=== PATIENT | female | born 1990 | race Caucasian/White ===

== ENCOUNTER 2019-05-24 16:20 | Emergency (ER) | payer MEDICAID ==
[2019-05-24 17:01] LABS: Absolute Neutrophil Ct (ANC) 8.51 (1.4-6.9); BASOPHIL % 0.6 % (0.0-0.4); Basophil (Absolute #) 0.09 (0-0.4); Eosinophil % 1.8 % (0.00-5.0); Eosinophil (Absolute #) 0.28 (0-0.5); Hematocrit 39.1 % (35-47); Hemoglobin 12.7 gm/dl (12.0-16.0); Lymphocyte (Absolute #) 4.39 (1.0-4.6); Lymphocytes % 28.7 % (24.0-44.0); Mean Cell Volume 92.4 fl (78-100); Mean Corpuscular Hgb Concent. 32.5 g/dl (32-36); Mean Platelet Volume 10.6 fl (6-9.5); Monocyte (Absolute #) 2.03 (0.0-1.3); Monocytes % 13.3 % (0.0-12.0); Neutrophil % 55.6 % (36.0-66.0); Platelet Count 345 K/mm3 (150-450); Red Blood Count 4.23 M/mm3 (4.1-5.4); Red Cell Distribution Width 14.2 % (11.5-14.0); White Blood Count 15.3 K/mm3 (4.0-10.5)
[2019-05-24 17:06] LABS: Appearance SLIGHTLY CLOUDY (CLEAR); Bacteria FEW /HPF (NEGATIVE); Bilirubin NEGATIVE (NEGATIVE); Blood LARGE Ery/ul (0-5); Epithelial Cells RARE /HPF (FEW); Glucose NEGATIVE (NEGATIVE); Ketones NEGATIVE (NEGATIVE); Leukocyte Esterase SMALL (NEGATIVE); Mucus SLIGHT /HPF (NEGATIVE); Nitrite NEGATIVE (NEGATIVE); Protein,Urine Dip 30 (Negative); Specific Gravity 1.023 (1.005-1.025); Urobilinogen 2 mg/dL (0-1); WBC 26-50 /HPF (0-5)
[2019-05-24 17:23] LABS: ALBUMIN 4.4 g/dL (3.5-5.0); ALKALINE PHOSPHATASE 59 U/L (38-126); ANION GAP 12.6 MEQ/L (5-15); BLOOD UREA NITROGEN 10 mg/dL (7-17); CHLORIDE 103 mmol/L (98-107); Calcium 9.6 mg/dL (8.4-10.2); Carbon Dioxide 29 mmol/L (22-30); Creatinine 1 0.83 mg/dL (0.52-1.04); Glucose 78 mg/dL (74-106); Potassium 3.7 mmol/L (3.5-5.1); SGOT/AST 42 U/L (14-36); SGPT/ALT 22 U/L (0-35); SODIUM 141 mmol/L (137-145); Total Protein 8.3 g/dL (6.3-8.2)
[2019-05-24 17:25] LABS: ACETAMINOPHEN < 10 ug/ml (10-30); ETHYL ALCOHOL < 10 mg/dL (0-10); SALICYLATE < 1.0 mg/dL (2-20)
[2019-05-24 17:54] LABS: Barbiturate,Urine NEGATIVE (NEGATIVE); Benzodiazepine,Urine NEGATIVE (NEGATIVE); Cocaine,Urine NEGATIVE (NEGATIVE); Methadone,Urine NEGATIVE (NEGATIVE); Opiate,Urine NEGATIVE (NEGATIVE); PCP,Urine NEGATIVE (NEGATIVE); THC,Urine NEGATIVE (NEGATIVE)
[2019-05-24 18:36] LABS: Amphetamine,Urine POSITIVE (NEGATIVE)
[2019-05-25 01:15] VITALS: BP 91/57; PULSE 65; O2SAT 100
--- NOTE | 2019-05-25 01:29 | ERPHSYRPT ---
- History of Present Illness Time Seen by Provider: 05/24/19 17:00 Source: patient Exam Limitations: clinical condition, intoxication Patient Subjective Stated Complaint: PT states "I do not know why I am here, I was bought here and did not want to come. I did bath salts a couple days ago, I shoot up meth, I did that a couple days ago, I have done nothing today. I do not want to hurt anyone, I do not want to hurt myself." Triage Nursing Assessment: Pt presented through the front doors with a friend, PT moving arms uncontrollable, unable to sit still. Pt speaks rapidly, has bruising and track mars on her arms. Pt denied suicidal or homicidal ideation. Physician History: patient is a 29-year-old white female who has been using meth and bath salts presents in an altered state. Police were here and found her not to be homicidal or suicidal.sshe has a history of heavy menses in the past. She was hospitalized at [facility] and for a while was able to be cleared for a while but has relapsed. Timing/Duration: today Severity of Symptoms-Max: moderate Severity of Symptoms-Current: moderate (aand) Allergies/Adverse Reactions: No Known Drug Allergies Allergy (Verified 05/24/19 16:38) Home Medications: Dextroamphetamine/Amphetamine [Adderall 20 mg Tablet] 20 mg PO DAILY 05/24/19 [ History] Hx Tetanus, Diphtheria Vaccination/Date Given: No Hx Influenza Vaccination/Date Given: No Hx Pneumococcal Vaccination/Date Given: No Immunizations Up to Date: Yes - Past Medical History Pertinent Past Medical History: Yes Other Medical History: hepatitis c - Past Surgical History Past Surgical History: Yes Other Surgical History: 4 sections,1 - Social History Smoking Status: Current every day smoker How long have you smoked: years Exposure to second hand smoke: Yes Drug Use: marijuana, bath salts, methamphetamines Patient Lives Alone: No - Female History Hx Last Menstrual Period: 05/18/2019 Hx Now: No - Review of Systems Constitutional: No Fever, No Chills Eyes: No Symptoms Ears, Nose, & Throat: No Symptoms Respiratory: No Cough, No Dyspnea Cardiac: No Chest Pain, No Edema, No Syncope Abdominal/Gastrointestinal: No Abdominal Pain, No Nausea, No Vomiting, No Diarrhea Genitourinary Symptoms: No Dysuria Musculoskeletal: No Back Pain, No Neck Pain Skin: No Rash Neurological: No Dizziness, No Focal Weakness, No Sensory Changes Psychological: Drug Abuse Endocrine: No Symptoms All Other Systems: Reviewed and Negative - Nursing Vital Signs Nursing Vital Signs: Initial Vital Signs Temperature 98.4 F 05/24/19 16:29 Pulse Rate 123 H 05/24/19 16:29 Respiratory Rate 20 05/24/19 16:29 Blood Pressure 110/87 05/24/19 16:29 O2 Sat by Pulse Oximetry 98 05/24/19 16:29 Pain Scale Pain Intensity 0 - Physical Exam General Appearance: no apparent distress, moderate distress (aand) Eyes, Ears, Nose, Throat Exam: normal ENT inspection, moist mucous membranes Neck Exam: normal inspection, non-tender, supple Respiratory Exam: normal breath sounds, lungs clear, No respiratory distress Cardiovascular Exam: regular rate/rhythm, No edema Gastrointestinal/Abdominal Exam: soft, No tenderness, No distention Extremities Exam: normal inspection, normal range of motion, No evidence of injury, No edema Current Suicidality: denies suicide plan Neurological Exam: alert, automatic outsole cutter II-XII nml as tested, oriented x 3 Appearance: disheveled Behavior/Eye Contact/Speech: avoids eye contact, increased rate of speech, compulsive, agitated (patient is twerking) Thoughts/Hallucinations: incoherent, obsessive Skin Exam: normal color, warm, dry, No rash SpO2: 100 - Course Nursing assessment & vital signs reviewed: Yes Ordered Tests: Active Orders 24 hr Category Date Time Status ACETAMINOPHEN Stat Lab 05/24/19 16:57 Completed CBC W DIFF Stat Lab 05/24/19 16:57 Completed CMP Stat Lab 05/24/19 16:57 Completed CULTURE,URINE Stat Lab 05/24/19 16:57 Received ETHYL ALCOHOL Stat Lab 05/24/19 16:57 Completed HCG,QUALITATIVE URINE Stat Lab 05/24/19 16:57 Completed SALICYLATE Stat Lab 05/24/19 16:57 Completed UA W/RFX UR CULTURE Stat Lab 05/24/19 16:57 Completed Urine Triage Profile Stat Lab 05/24/19 17:37 Completed Lab/Rad Data: Laboratory Result Diagrams 05/24/19 16:57 05/24/19 16:57 Laboratory Results 05/24/19 05/24/19 05/24/19 Range/Units 17:37 16:57 16:57 WBC (4.0-10.5) K/mm3 RBC (4.1-5.4) M/mm3 Hgb (12.0-16.0) gm/dl Hct (35-47) % MCV (78-100) fl MCH (26-32) pg MCHC (32-36) g/dl RDW (11.5-14.0) % Plt Count (150-450) K/mm3 MPV (6-9.5) fl Gran % (36.0-66.0) % Eos # (Auto) (0-0.5) Absolute Lymphs (auto) (1.0-4.6) Absolute Monos (auto) (0.0-1.3) Lymphocytes % (24.0-44.0) % Monocytes % (0.0-12.0) % Eosinophils % (0.00-5.0) % Basophils % (0.0-0.4) % Absolute Granulocytes (1.4-6.9) Basophils # (0-0.4) Sodium (137-145) mmol/L Potassium (3.5-5.1) mmol/L Chloride (98-107) mmol/L Carbon Dioxide (22-30) mmol/L Anion Gap (5-15) MEQ/L BUN (7-17) mg/dL Creatinine (0.52-1.04) mg/dL Estimated GFR ML/MIN Glucose (74-106) mg/dL Calcium (8.4-10.2) mg/dL Total Bilirubin (0.2-1.3) mg/dL AST (14-36) U/L ALT (0-35) U/L Alkaline Phosphatase (38-126) U/L Serum Total Protein (6.3-8.2) g/dL Albumin (3.5-5.0) g/dL Urine Color BRANDON (YELLOW) Urine Appearance SLIGHTLY CLOUDY (CLEAR) Urine pH 5.0 (5-6) Ur Specific [place] 1.023 (1.005-1.025) Urine Protein 30 (Negative) Urine Ketones NEGATIVE (NEGATIVE) Urine Blood LARGE (0-5) Cirilo/ul Urine Nitrite NEGATIVE (NEGATIVE) Urine Bilirubin NEGATIVE (NEGATIVE) Urine Urobilinogen 2 (0-1) mg/dL Ur Leukocyte Esterase SMALL (NEGATIVE) Urine WBC (Auto) 26-50 (0-5) /HPF Urine RBC (Auto) 16-25 (0-2) /HPF U Hyaline Cast (Auto) 6-10 (0-2) /LPF U Epithel Cells (Auto) RARE (FEW) /HPF Urine Bacteria (Auto) FEW (NEGATIVE) /HPF Urine Mucus (Auto) SLIGHT (NEGATIVE) /HPF Urine Culture Reflexed YES (NO) Urine Glucose NEGATIVE (NEGATIVE) mg/dL Urine HCG, Qual NEGATIVE (Negative) Salicylates (2-20) mg/dL Urine Opiates Level NEGATIVE (NEGATIVE) Ur Methadone NEGATIVE (NEGATIVE) Acetaminophen (10-30) ug/ml Urine Barbiturates NEGATIVE (NEGATIVE) Ur Phencyclidine (PCP) NEGATIVE (NEGATIVE) Urine Amphetamine POSITIVE (NEGATIVE) U Benzodiazepine Level NEGATIVE (NEGATIVE) Urine Cocaine NEGATIVE (NEGATIVE) Urine Marijuana (THC) NEGATIVE (NEGATIVE) Ethyl Alcohol (0-10) mg/dL 05/24/19 05/24/19 Range/Units 16:57 16:57 WBC 15.3 H (4.0-10.5) K/mm3 RBC 4.23 (4.1-5.4) M/mm3 Hgb 12.7 (12.0-16.0) gm/dl Hct 39.1 (35-47) % MCV 92.4 (78-100) fl MCH 30.0 (26-32) pg MCHC 32.5 (32-36) g/dl RDW 14.2 H (11.5-14.0) % Plt Count 345 (150-450) K/mm3 MPV 10.6 H (6-9.5) fl Gran % 55.6 (36.0-66.0) % Eos # (Auto) 0.28 (0-0.5) Absolute Lymphs (auto) 4.39 (1.0-4.6) Absolute Monos (auto) 2.03 H (0.0-1.3) Lymphocytes % 28.7 (24.0-44.0) % Monocytes % 13.3 H (0.0-12.0) % Eosinophils % 1.8 (0.00-5.0) % Basophils % 0.6 (0.0-0.4) % Absolute Granulocytes 8.51 H (1.4-6.9) Basophils # 0.09 (0-0.4) Sodium 141 (137-145) mmol/L Potassium 3.7 (3.5-5.1) mmol/L Chloride 103 (98-107) mmol/L Carbon Dioxide 29 (22-30) mmol/L Anion Gap 12.6 (5-15) MEQ/L BUN 10 (7-17) mg/dL Creatinine 0.83 (0.52-1.04) mg/dL Estimated GFR > 60.0 ML/MIN Glucose 78 (74-106) mg/dL Calcium 9.6 (8.4-10.2) mg/dL Total Bilirubin 1.30 (0.2-1.3) mg/dL AST 42 H (14-36) U/L ALT 22 (0-35) U/L Alkaline Phosphatase 59 (38-126) U/L Serum Total Protein 8.3 H (6.3-8.2) g/dL Albumin 4.4 (3.5-5.0) g/dL Urine Color (YELLOW) Urine Appearance (CLEAR) Urine pH (5-6) Ur Specific [place] (1.005-1.025) Urine Protein (Negative) Urine Ketones (NEGATIVE) Urine Blood (0-5) Cirilo/ul Urine Nitrite (NEGATIVE) Urine Bilirubin (NEGATIVE) Urine Urobilinogen (0-1) mg/dL Ur Leukocyte Esterase (NEGATIVE) Urine WBC (Auto) (0-5) /HPF Urine RBC (Auto) (0-2) /HPF U Hyaline Cast (Auto) (0-2) /LPF U Epithel Cells (Auto) (FEW) /HPF Urine Bacteria (Auto) (NEGATIVE) /HPF Urine Mucus (Auto) (NEGATIVE) /HPF Urine Culture Reflexed (NO) Urine Glucose (NEGATIVE) mg/dL Urine HCG, Qual (Negative) Salicylates < 1.0 L (2-20) mg/dL Urine Opiates Level (NEGATIVE) Ur Methadone (NEGATIVE) Acetaminophen < 10 L (10-30) ug/ml Urine Barbiturates (NEGATIVE) Ur Phencyclidine (PCP) (NEGATIVE) Urine Amphetamine (NEGATIVE) U Benzodiazepine Level (NEGATIVE) Urine Cocaine (NEGATIVE) Urine Marijuana (THC) (NEGATIVE) Ethyl Alcohol < 10 (0-10) mg/dL - Progress Progress: improved - Departure Departure Disposition: Home Clinical Impression: Methamphetamine abuse Condition: Good Critical Care Time: No Referrals: KRISTEN MCELROY MD [Primary Care Provider] - Instructions: Drug Abuse and Drug Addiction (DC) Plan of Treatment: patient will be discharged to the care of her grandfather. She has suffered 9 hours she is alert and oriented moving all extremities
== END 2019-05-25 02:45 | disposition home or self-care (01) ==
LOC: ED 16:20
DX: F15.10 Other stimulant abuse, uncomplicated (principal)
CPT/HCPCS: 36415; 80053; 80307; 81001; 84703; 85025; 87077; 87086; 87186; 99284; G0481; G0480

== ENCOUNTER 2022-10-20 16:39 | Emergency (ER) | payer MEDICAID, OTHER ==
[2022-10-20 16:48] VITALS: BP 92/68; PULSE 97; O2SAT 98
[2022-10-20] MEDS ORDERED: TORAdol 30 mg Injection IM ONE (17:11)
[2022-10-20] MEDS ORDERED: TORAdol 30 mg Injection ONE (17:13)
--- NOTE | 2022-10-20 17:18 | ERPHSYRPT ---
- History of Present Illness Source: patient Exam Limitations: other (Poor historian) Patient Subjective Stated Complaint: PT states "I have pain in my left ear and it is killing me." Triage Nursing Assessment: PT presented alert and oriented X 3, skin pwd. Pt ambulates with an upright steady gait, able to speak in complete full sentence. Pt unable to sit still. Physician History: 32 yo Wf w L otalgia x 1day. Pain is a 10 on scale. She denies fever/trauma/cough/coryza/ST. Timing/Duration: abrupt onset Severity: severe ENT Location: ear (L) Prearrival Treatment: over the counter meds Modifying Factors: Improves With: nothing Associated Symptoms: ear pain (L) Allergies/Adverse Reactions: No Known Drug Allergies Allergy (Verified 05/24/19 16:38) Hx Tetanus, Diphtheria Vaccination/Date Given: No Hx Influenza Vaccination/Date Given: No Hx Pneumococcal Vaccination/Date Given: No Immunizations Up to Date: No Travel Risk - International Travel Have you traveled outside of the country in past 3 weeks: No - Coronavirus Screening Are you exhibiting any of the following symptoms?: No Close contact with a COVID-19 positive Pt in past 14-21 Days: No - Vaccine Status Have you recieved a Covid-19 vaccination: No - Review of Systems Constitutional: No Symptoms Eyes: No Symptoms Ears, Nose, & Throat: No Symptoms, Ear Pain Respiratory: No Symptoms Cardiac: No Symptoms Abdominal/Gastrointestinal: No Symptoms Genitourinary Symptoms: No Symptoms Musculoskeletal: No Symptoms Skin: No Symptoms Neurological: No Symptoms Psychological: No Symptoms Endocrine: No Symptoms Hematologic/Lymphatic: No Symptoms Immunological/Allergic: No Symptoms - Past Medical History Pertinent Past Medical History: Yes Other Medical History: hepatitis c - Past Surgical History Past Surgical History: Yes Other Surgical History: 4 sections,1 - Social History Smoking Status: Current every day smoker How long have you smoked: years Exposure to second hand smoke: Yes Drug Use: marijuana, bath salts, methamphetamines Patient Lives Alone: No - Female History Hx Last Menstrual Period: 09/20/2022 Hx Now: No - Nursing Vital Signs Nursing Vital Signs: Initial Vital Signs Temperature 98.1 F 10/20/22 16:45 Pulse Rate 97 H 10/20/22 16:45 Respiratory Rate 20 10/20/22 16:45 Blood Pressure 92/68 10/20/22 16:45 O2 Sat by Pulse Oximetry 98 10/20/22 16:45 Pain Scale Pain Intensity 8 Borderline hypotensive - Physical Exam General Appearance: no apparent distress, anxiety Eye Exam: bilateral eye: normal inspection, PERRL, EOMI Ear Exam: right ear: auricle normal, canal normal, TM red, left ear: TM normal, swelling (L canal somewhat erythematous) Nasal Exam: normal inspection Throat Exam: normal, pharynx normal Neck Exam: normal inspection, non-tender, supple, trachea midline Cardiovascular/Respiratory Exam: normal breath sounds, regular rate/rhythm, heart sounds normal Abdominal Exam: non-tender, soft Neurologic Exam: alert, oriented x 3, director of perioperative services II-XII nml as tested, nml station & gait, sensation nml Skin Exam: normal color, warm, dry SpO2 Interpretation: normal SpO2: 98 O2 Delivery: Room Air - Course Nursing assessment & vital signs reviewed: Yes Ordered Tests: Medication Summary Discontinued Medications Generic Name Dose Route Start Last Admin Trade Name Dhiraj PRN Reason Stop Dose Admin Ketorolac Tromethamine 30 mg 10/20/22 17:11 10/20/22 17:14 Ketorolac Tromethamine 30 Mg/Ml Inj IM 10/20/22 17:12 30 mg STAT ONE Administration Ketorolac Tromethamine Confirm 10/20/22 17:13 Ketorolac Tromethamine 30 Mg/Ml Inj Administered 10/20/22 17:14 Dose 30 mg .ROUTE .STK-MED ONE - Progress Progress: improved Progress Note: 10/20/22 22:13 Nursing note and vital signs reviewed No food or housing insecurities noted Additional history per friend Pt somewhat uncooperative w PE L otic canal w minimal erythema and clear TM, but pt screams and pulls away when otic exam done, so very limited. Will treat as otitis externa. 30mg IM toradol 10/20/22 22:15 10/20/22 22:16 10/20/22 22:17 Counseled pt/family regarding: diagnosis, need for follow-up Medical Desision Making - Independent Historian Additional History obtained from: Relative/friend - Risk of complications The pt has a mod risk of morbidity or mortality based on: Need for prescription drug management - Departure Departure Disposition: Home Clinical Impression: Right otitis media, Left otitis externa Condition: Stable Critical Care Time: No Referrals: NAVI,KRISTEN, MD [Primary Care Provider] - Follow up/PCP as directed Instructions: Outer Ear Infection (DC), Ear Infections (Otitis Media) in Adults (DC) Additional Instructions: Start amoxil twice a day for 10 days Floxin otic 10 drops left ear twice a day for 10 days Follow up with your family MD in 2-3 days Motrin/Tylenol for pain Prescriptions: Amoxicillin 875 mg PO BID 10 Days #20 tablet Ofloxacin Otic 5 ml [Floxin Otic 5 ML] 10 drops OT BID 10 Days #5 ml
== END 2022-10-20 17:34 | disposition home or self-care (01) ==
LOC: ED 16:39
DX: H60.92 Unspecified otitis externa, left ear (principal); H66.91 Otitis media, unspecified, right ear; Z28.310 Unvaccinated for COVID-19; Z72.0 Tobacco use
CPT/HCPCS: 96372; 99282; J1885

== ENCOUNTER 2024-04-21 14:25 | Emergency (ER) | payer OTHER ==
[2024-04-21 15:20] VITALS: PULSE 82; TEMP 97.4
[2024-04-21 15:44] LABS: BASOPHIL % 0.9 % (0.1-1.2); Basophil (Absolute #) 0.09 x10^3/uL (0.01-0.08); Eosinophil % 2.7 % (0.7-5.8); Eosinophil (Absolute #) 0.26 x10^3/uL (0.04-0.36); Hematocrit 39.3 % (34.1-44.9); Hemoglobin 12.9 g/dL (11.2-15.7); IMMATURE GRAN # 0.03 x10^3u/L (0.001-0.031); IMMATURE GRAN % 0.3 % (0.001-0.429); Lymphocyte (Absolute #) 2.88 x10^3/uL (1.18-3.74); Lymphocytes % 30.1 % (19.3-51.7); Mean Cell Volume 91.8 fL (79.4-94.8); Mean Corpuscular Hemoglobin 30.1 pg (25.6-32.2); Mean Corpuscular Hgb Concent. 32.8 g/dL (32.2-35.5); Mean Platelet Volume 9.4 fL (9.4-12.3); Monocyte (Absolute #) 0.71 x10^3/uL (0.24-0.86); Monocytes % 7.4 % (4.7-12.5); Neutrophil % 58.6 % (34.0-71.1); Platelet Count 472 x10^3/uL (182-369); Red Blood Count 4.28 x10^6/uL (3.93-5.22); Red Cell Distribution Width 13.3 % (11.7-14.4); White Blood Count 9.6 x10^3/uL (3.98-10.04)
--- NOTE | 2024-04-21 15:46 | ERPHSYRPT ---
- History of Present Illness Source: patient Exam Limitations: no limitations Patient Subjective Stated Complaint: pt is here for medical clearance to go to a detox facility, pt states that she did meth and bath salts about 5 days ago after she walked out of [facility] and has been clean for 1 day Triage Nursing Assessment: Pt brought to the ER by her father, hank gil, denies pain, pt appears to be under the influence, pt states that she is willing to go get help and her aunt is a PETROLEUM REFINING EQUIPMENT OPERATOR at [employer] and she was told to come and get cleard and they would have a bed for her, pulses normal, skin n/w/d, laughing at nothing in the room, has had Hep C and states that it was treated and she is unsure if she still has it, pt is very fidgety, no difficulty breathing, denies N&V Physician History: Patient has a history of drug use. She was recently in a facility about a week ago and checked herself out a couple days later. She went home and used methamphetamines and some bath salts. She is wanting to get in for some [facility]Now. They have spoken with a relative who is a nurse practitioner at a facility and I believe that they have excepted her and told her to come here for medical clearance. She has a pretty extensive drug use history and has been having some violent outburst and has had difficulty controlling her emotions. Her family is worried. Evidently her situation has been discussed with a facility and it seems that they are in agreement to accept her for inpatient. Allergies/Adverse Reactions: No Known Drug Allergies Allergy (Verified 04/21/24 15:20) Home Medications: No Reportable Medications [No Reported Medications] 04/21/24 [History] Hx Tetanus, Diphtheria Vaccination/Date Given: No Hx Influenza Vaccination/Date Given: No Hx Pneumococcal Vaccination/Date Given: No Travel Risk - International Travel Have you traveled outside of the country in past 3 weeks: No - Emerging Infectious Disease Are you exhibiting symptoms associated with any current EIDs: No - Past Medical History Pertinent Past Medical History: Yes Psycho-Social History: Other Other Medical History: hepatitis c, drug induced psychosis - Past Surgical History Past Surgical History: Yes Other Surgical History: 4 sections,1 - Female History Hx Last Menstrual Period: 3 weeks ago Hx Now: No - Social History Smoking Status: Current every day smoker How long have you smoked: years Exposure to second hand smoke: Yes Drug Use: bath salts, methamphetamines, other Patient Lives Alone: No - Social Determinants of Health Will the patient participate in the screening: Unable to obtain - Review of Systems Constitutional: No Symptoms Eyes: No Symptoms Ears, Nose, & Throat: No Symptoms Respiratory: No Symptoms Cardiac: Orthopnea Abdominal/Gastrointestinal: No Symptoms Genitourinary Symptoms: No Symptoms Neurological: No Symptoms Psychological: Emotional Lability - Nursing Vital Signs Nursing Vital Signs: Initial Vital Signs Temperature 97.4 F 04/21/24 15:06 Pulse Rate 82 04/21/24 15:06 Blood Pressure 130/92 04/21/24 15:06 O2 Sat by Pulse Oximetry 99 04/21/24 15:06 Pain Scale Pain Intensity 0 - Physical Exam General Appearance: no apparent distress Eyes, Ears, Nose, Throat Exam: normal ENT inspection, TMs normal Respiratory Exam: normal breath sounds, chest tenderness, lungs clear Cardiovascular Exam: regular rate/rhythm, normal heart sounds Gastrointestinal/Abdominal Exam: soft, normal bowel sounds Extremities Exam: normal inspection Neurological Exam: alert, agitated Appearance: appropriate appearance, impaired insight Behavior/Eye Contact/Speech: alert & cooperative, cooperative, good eye contact, increased rate of speech Skin Exam: normal color, warm SpO2: 99 Lab/Rad Data: Laboratory Result Diagrams 04/21/24 15:16 04/21/24 15:40 Laboratory Results 04/21/24 04/21/24 04/21/24 Range/Units 17:20 17:20 17:20 WBC (3.98-10.04) x10^3/uL RBC (3.93-5.22) x10^6/uL Hgb (11.2-15.7) g/dL Hct (34.1-44.9) % MCV (79.4-94.8) fL MCH (25.6-32.2) pg MCHC (32.2-35.5) g/dL RDW (11.7-14.4) % Plt Count (182-369) x10^3/uL MPV (9.4-12.3) fL Gran % (34.0-71.1) % Immature Gran % (Auto) (0.001-0.429) % Nucleat RBC Rel Count (0.00-0.2) % Eos # (Auto) (0.04-0.36) x10^3/uL Immature Gran # (Auto) (0.001-0.031) x10^3u/L Absolute Lymphs (auto) (1.18-3.74) x10^3/uL Absolute Monos (auto) (0.24-0.86) x10^3/uL Absolute Nucleated RBC (0.00-0.012) x10^3u/L Lymphocytes % (19.3-51.7) % Monocytes % (4.7-12.5) % Eosinophils % (0.7-5.8) % Basophils % (0.1-1.2) % Absolute Granulocytes (1.56-6.13) x10^3/uL Basophils # (0.01-0.08) x10^3/uL Sodium (135-145) mmol/L Potassium (3.5-5.1) mmol/L Chloride (98-107) mmol/L Carbon Dioxide (22-30) mmol/L Anion Gap (5-15) MEQ/L BUN (7-17) mg/dL Creatinine (0.52-1.04) mg/dL Estimated GFR ML/MIN Glucose (74-106) mg/dL Calcium (8.4-10.2) mg/dL Magnesium (1.6-2.3) mg/dL Total Bilirubin (0.2-1.3) mg/dL AST (14-36) U/L ALT (0-35) U/L Alkaline Phosphatase (38-126) U/L Serum Total Protein (6.3-8.2) g/dL Albumin (3.5-5.0) g/dL Urine Color Yellow (Yellow) Urine Appearance Clear (Clear) Urine pH 6.0 (4.6-8.0) Ur Specific [place] 1.010 (1.005-1.030) Urine Protein Negative (Negative) Urine Glucose (UA) Negative (Negative) mg/dL Urine Ketones Negative (Negative) Urine Blood Negative (Negative) Urine Nitrite Negative (Negative) Urine Bilirubin Negative (Negative) Urine Urobilinogen 1.0 A (0.2) mg/dL Ur Leukocyte Esterase Small A (Negative) U Hyaline Cast (Auto) NONE SEEN (0-2) /LPF Urine Microscopic RBC 0-2 (0-5) /HPF Urine Microscopic WBC 6-10 A (0-5) /HPF Ur Epithelial Cells Few (None Seen) /HPF Urine Bacteria Few A (None Seen) /HPF Urine Culture Reflexed NO (NO) Urine HCG, Qual NEGATIVE (NEGATIVE) Salicylates (2-20) mg/dL Urine Opiates Level NEGATIVE (NEGATIVE) Ur Methadone NEGATIVE (NEGATIVE) Acetaminophen (10-30) ug/ml Urine Barbiturates NEGATIVE (NEGATIVE) Ur Phencyclidine (PCP) NEGATIVE (NEGATIVE) Urine Amphetamine POSITIVE A (NEGATIVE) U Benzodiazepine Level NEGATIVE (NEGATIVE) Urine Cocaine NEGATIVE (NEGATIVE) Urine Marijuana (THC) NEGATIVE (NEGATIVE) Ethyl Alcohol (0-10) mg/dL 04/21/24 04/21/24 04/21/24 Range/Units 15:40 15:40 15:16 WBC 9.6 (3.98-10.04) x10^3/uL RBC 4.28 (3.93-5.22) x10^6/uL Hgb 12.9 (11.2-15.7) g/dL Hct 39.3 (34.1-44.9) % MCV 91.8 (79.4-94.8) fL MCH 30.1 (25.6-32.2) pg MCHC 32.8 (32.2-35.5) g/dL RDW 13.3 (11.7-14.4) % Plt Count 472 H (182-369) x10^3/uL MPV 9.4 (9.4-12.3) fL Gran % 58.6 (34.0-71.1) % Immature Gran % (Auto) 0.3 (0.001-0.429) % Nucleat RBC Rel Count 0.0 (0.00-0.2) % Eos # (Auto) 0.26 (0.04-0.36) x10^3/uL Immature Gran # (Auto) 0.03 (0.001-0.031) x10^3u/L Absolute Lymphs (auto) 2.88 (1.18-3.74) x10^3/uL Absolute Monos (auto) 0.71 (0.24-0.86) x10^3/uL Absolute Nucleated RBC 0.00 (0.00-0.012) x10^3u/L Lymphocytes % 30.1 (19.3-51.7) % Monocytes % 7.4 (4.7-12.5) % Eosinophils % 2.7 (0.7-5.8) % Basophils % 0.9 (0.1-1.2) % Absolute Granulocytes 5.60 (1.56-6.13) x10^3/uL Basophils # 0.09 H (0.01-0.08) x10^3/uL Sodium 140 (135-145) mmol/L Potassium 3.1 L (3.5-5.1) mmol/L Chloride 103 (98-107) mmol/L Carbon Dioxide 27 (22-30) mmol/L Anion Gap 12.5 (5-15) MEQ/L BUN 9 (7-17) mg/dL Creatinine 0.66 (0.52-1.04) mg/dL Estimated GFR 118.7 ML/MIN Glucose 107 H (74-106) mg/dL Calcium 9.3 (8.4-10.2) mg/dL Magnesium 2.0 (1.6-2.3) mg/dL Total Bilirubin 1.00 (0.2-1.3) mg/dL AST 32 (14-36) U/L ALT 31 (0-35) U/L Alkaline Phosphatase 66 (38-126) U/L Serum Total Protein 7.8 (6.3-8.2) g/dL Albumin 4.5 (3.5-5.0) g/dL Urine Color (Yellow) Urine Appearance (Clear) Urine pH (4.6-8.0) Ur Specific [place] (1.005-1.030) Urine Protein (Negative) Urine Glucose (UA) (Negative) mg/dL Urine Ketones (Negative) Urine Blood (Negative) Urine Nitrite (Negative) Urine Bilirubin (Negative) Urine Urobilinogen (0.2) mg/dL Ur Leukocyte Esterase (Negative) U Hyaline Cast (Auto) (0-2) /LPF Urine Microscopic RBC (0-5) /HPF Urine Microscopic WBC (0-5) /HPF Ur Epithelial Cells (None Seen) /HPF Urine Bacteria (None Seen) /HPF Urine Culture Reflexed (NO) Urine HCG, Qual (NEGATIVE) Salicylates < 1.0 L (2-20) mg/dL Urine Opiates Level (NEGATIVE) Ur Methadone (NEGATIVE) Acetaminophen < 10 L (10-30) ug/ml Urine Barbiturates (NEGATIVE) Ur Phencyclidine (PCP) (NEGATIVE) Urine Amphetamine (NEGATIVE) U Benzodiazepine Level (NEGATIVE) Urine Cocaine (NEGATIVE) Urine Marijuana (THC) (NEGATIVE) Ethyl Alcohol < 10 (0-10) mg/dL - Progress Progress Note: 04/28/24 08:30 Patient was stable throughout stay. She was turned over to the oncoming doctor. - Departure Clinical Impression: Methamphetamine abuse Condition: Stable Critical Care Time: No Referrals: KRISTEN MCELROY MD [Primary Care Provider] - Follow up/PCP as directed
[2024-04-21 15:57] LABS: ALBUMIN 4.5 g/dL (3.5-5.0); ALKALINE PHOSPHATASE 66 U/L (38-126); ANION GAP 12.5 MEQ/L (5-15); BLOOD UREA NITROGEN 9 mg/dL (7-17); CHLORIDE 103 mmol/L (98-107); Calcium 9.3 mg/dL (8.4-10.2); Carbon Dioxide 27 mmol/L (22-30); Creatinine 1 0.66 mg/dL (0.52-1.04); EST GLOMERULAR FILTRATION RATE 118.7 ML/MIN; ETHYL ALCOHOL < 10 mg/dL (0-10); Glucose 107 mg/dL (74-106); Potassium 3.1 mmol/L (3.5-5.1); SGOT/AST 32 U/L (14-36); SGPT/ALT 31 U/L (0-35); SODIUM 140 mmol/L (135-145); Total Protein 7.8 g/dL (6.3-8.2)
[2024-04-21 15:58] LABS: ACETAMINOPHEN < 10 ug/ml (10-30); SALICYLATE < 1.0 mg/dL (2-20)
[2024-04-21 17:21] VITALS: BP 126/97
[2024-04-21 17:29] LABS: HCG URINE TEST NEGATIVE (NEGATIVE)
[2024-04-21 17:38] LABS: Appearance Clear (Clear); Bacteria Few /HPF (None Seen); Bilirubin Negative (Negative); Blood Negative (Negative); Epithelial Cells Few /HPF (None Seen); Glucose, Urine Negative (Negative); Hyaline Casts NONE SEEN /LPF (0-2); Ketones Negative (Negative); Leukocyte Esterase Small (Negative); Nitrite Negative (Negative); Protein,Urine Dip Negative (Negative); RBC 0-2 /HPF (0-5)
[2024-04-21 17:44] LABS: Barbiturate,Urine NEGATIVE (NEGATIVE); Benzodiazepine,Urine NEGATIVE (NEGATIVE); Cocaine,Urine NEGATIVE (NEGATIVE); Methadone,Urine NEGATIVE (NEGATIVE); Opiate,Urine NEGATIVE (NEGATIVE); PCP,Urine NEGATIVE (NEGATIVE); THC,Urine NEGATIVE (NEGATIVE)
[2024-04-21 18:26] LABS: Amphetamine,Urine POSITIVE (NEGATIVE)
[2024-04-28 08:31] VITALS: O2SAT 99
== END 2024-04-21 19:18 ==
LOC: ED 14:25
DX: Z02.2 Encounter for examination for admission to residential institution (principal); F15.10 Other stimulant abuse, uncomplicated; Z72.0 Tobacco use
CPT/HCPCS: 36415; 80053; 80143; 80179; 80307; 81001; 81025; 82077; 83735; 85025; 93005; 99283

== ENCOUNTER 2024-05-22 20:02 | Emergency (ER) | payer MEDICAID, OTHER ==
[2024-05-22 20:20] VITALS: RESP 16; TEMP 97.4; O2SAT 97
--- NOTE | 2024-05-22 21:06 | ERPHSYRPT ---
- History of Present Illness Time Seen by Provider: 05/22/24 21:05 Source: patient Exam Limitations: no limitations Patient Subjective Stated Complaint: pt states she was told by staff at [facility] to come into er to get presumptive acceptance for insurance so she could be a dmitted there tonight. pt reports she is recently out of retirement, before retirement she was using pills, meth, and bath salts. Triage Nursing Assessment: pt alert and oriented, answers questions approp. pt ambulates into room with steady gait noted. respirations nonlabored, skin warm and dry. Physician History: pt states she was told by staff at [facility] to come into er to get presumptive acceptance for insurance so she could be admitted there tonight. pt reports she is recently out of retirement, before retirement she was using pills, meth, and bath salts. Associated Symptoms: denies symptoms Allergies/Adverse Reactions: No Known Drug Allergies Allergy (Verified 05/22/24 20:21) Home Medications: No Reportable Medications [No Reported Medications] 04/21/24 [History] Hx Tetanus, Diphtheria Vaccination/Date Given: Yes Hx Influenza Vaccination/Date Given: No Hx Pneumococcal Vaccination/Date Given: No Travel Risk - International Travel Have you traveled outside of the country in past 3 weeks: No - Emerging Infectious Disease Are you exhibiting symptoms associated with any current EIDs: No - Review of Systems Constitutional: No Fever, No Chills Eyes: No Symptoms Ears, Nose, & Throat: No Symptoms Respiratory: No Cough, No Dyspnea Cardiac: No Chest Pain, No Edema, No Syncope Abdominal/Gastrointestinal: No Abdominal Pain, No Nausea, No Vomiting, No Diarrhea Genitourinary Symptoms: No Dysuria Musculoskeletal: No Back Pain, No Neck Pain Skin: No Rash Neurological: No Dizziness, No Focal Weakness, No Sensory Changes Psychological: No Symptoms Endocrine: No Symptoms All Other Systems: Reviewed and Negative - Past Medical History Pertinent Past Medical History: Yes Psycho-Social History: Other Other Medical History: hepatitis c- treated, drug induced psychosis - Past Surgical History Past Surgical History: Yes Other Surgical History: 5 c sections,1 - Female History Hx Last Menstrual Period: mirena- irreg Hx Now: No - Social History Smoking Status: Former smoker How long have you smoked: years Exposure to second hand smoke: Yes Drug Use: bath salts, methamphetamines, narcotics, other Patient Lives Alone: No - Social Determinants of Health Will the patient participate in the screening: Declined to provide - Nursing Vital Signs Nursing Vital Signs: Initial Vital Signs Temperature 97.4 F 05/22/24 20:10 Pulse Rate 100 H 05/22/24 20:10 Respiratory Rate 16 05/22/24 20:10 Blood Pressure 130/70 05/22/24 20:10 O2 Sat by Pulse Oximetry 97 05/22/24 20:10 Pain Scale Pain Intensity 0 - Physical Exam General Appearance: no apparent distress, alert Eye Exam: PERRL/EOMI, eyes nml inspection Ears, Nose, Throat Exam: normal ENT inspection, TMs normal, pharynx normal, moist mucous membranes Neck Exam: normal inspection, non-tender, supple, full range of motion Respiratory Exam: normal breath sounds, lungs clear, No respiratory distress Cardiovascular Exam: regular rate/rhythm, normal heart sounds, normal peripheral pulses Gastrointestinal/Abdomen Exam: soft, normal bowel sounds, No tenderness, No mass Back Exam: normal inspection, normal range of motion, No CVA tenderness, No vertebral tenderness Extremity Exam: normal inspection, normal range of motion, pelvis stable Neurologic Exam: alert, oriented x 3, cooperative, normal mood/affect, nml cerebellar function, nml station & gait, sensation nml, No motor deficits Skin Exam: normal color, warm, dry, No rash Lymphatic Exam: No adenopathy SpO2: 97 - Course Nursing assessment & vital signs reviewed: Yes - Progress Progress: unchanged Counseled pt/family regarding: diagnosis, need for follow-up Medical Desision Making - Risk of complications Minimal Risk: Minimal risk of morbidity - Departure Departure Disposition: Home Clinical Impression: Methamphetamine abuse Condition: Stable Critical Care Time: No Referrals: KRISTEN MCELROY MD [Primary Care Provider] - Follow up/PCP as directed Additional Instructions: RODRÍGUEZ WILL was seen on 05/22/24 n the Emergency Room. At that time you were treated for an emergent condition, during your visit Laboratory, Radiology and/or other procedures may have been ordered. It is very important that you follow-up with your Primary Care Physician KRISTEN MCELROY within the next 24-48 hours to review your Emergency Room visit and the final results of testing that was ordered. Some test results such as Urine Cultures, Blood Cultures, and other cultures if ordered will not be finalized for 24-48 hours. If you do not have a Primary Care Provider please call the medical records department at [phone] ext [phone] to obtain a copy of your results or you may sign into our patient portal to obtain these results by visiting us @ [email or web address] and completing the following steps: 1. Click on the Patient Portal link 2. Click the Patient Self Enrollment Link to complete the enrollment form and entering your 3. Once the enrollment form is completed you will receive an email with a temporary ID and password at the email address you provided. 4. Next choose a user name and password. Your user name must be at least 4 characters long and your password must be at least 4 characters long. 5. Choose a security question from the list and provide your answer to the question. If you already have signed into the Health Portal you may access your Health Care Information 29/01 by the following steps: 1. Login to our website @ [email or web address] 2. Enter your original user name and password. FAQS The [facility] Health Portal is an online tool that contains your Lab Results, Radiology Reports, Visit History, Discharge Instructions and Health Summary Lab and Radiology Results will not be available for 72 hours on the portal. The Portal is a secure site, passwords are encryted and URLs are re-written so they cannot be copied and pasted. You and authorized family members are the only ones who can access your Portal. Also there is a timeout feature that protects your information if you leave the Portal page open. If you have technical difficulty please use the Contact Us link on the page this will allow you to submit any questions you have regarding the Portal or you may contact the Medical Record Department at [phone] ext [phone].
[2024-05-22 21:10] VITALS: BP 137/93; PULSE 93
== END 2024-05-22 21:12 | disposition home or self-care (01) ==
LOC: ED 20:02
DX: F15.90 Other stimulant use, unspecified, uncomplicated (principal)
CPT/HCPCS: 99281